=== PATIENT | male | born 1990 | race Caucasian/White ===

== ENCOUNTER 2018-04-13 18:11 | Emergency (ER) | payer OTHER, SELFPAY ==
[2018-04-13 18:35] VITALS: BP 137/77; PULSE 69; RESP 20; TEMP 36.6; O2SAT 99
--- NOTE | 2018-04-13 19:51 | DI.RAD.S_ITS ---
PROCEDURE: XR FINGER LT MIN 2V INDICATIONS: injury TECHNIQUE: AP hand, 2 views of the left second finger(s) acquired. COMPARISON: None. FINDINGS: Bones: No fractures or dislocations. No suspicious bony lesions. Soft tissues: No suspicious soft tissue calcifications. Punctate, less than 1 mm in diameter foreign body density seen noted adjacent to the tip of the left second finger. IMPRESSION: No fracture. No osseous lesion. If there are persistent symptoms or clinical suspicion for pathology, then repeat radiographs or advanced imaging (CT, MRI or bone scan) should be considered for further evaluation. Dictated by: Verna Meraz MD, PhD on 04/13/2018 at 20:42 Approved by: Verna Meraz MD, PhD on 04/13/2018 at 20:43
[2018-04-13] MEDS: TET,DIPH,PERTUSS(ACELL),VAC/PF 0.5 ML SYRINGE IM (21:08)
--- NOTE | 2018-04-13 21:10 | PC.NURSE ---
nail bed is intact, pt states was punctured with wood.
--- NOTE | 2018-04-13 21:23 | ED.UPPEXIN ---
HPI - Extremity Injury (Upper) <JAIRO Gutierrez Last Filed: 04/13/18 23:10> General Chief Complaint: Extremity Injury, Upper Stated Complaint: LEFT HAND INJURY Time Seen by Provider: 04/13/18 21:09 Source: patient Mode of arrival: ambulatory Limitations: no limitations History of Present Illness HPI narrative: This healthy 28-year-old male reached down on to the wood frame of a doorway and pulled a piece of wood under his left pointer finger. He is right-handed. He tried to get it out and it broke off under the nail and now unable to remove. He states that initially, it was quite achy even into his hand but pain is better now. He is able to move the hand normally. He denies any fever or redness. He is not up-to-date on tetanus vaccine. Related Data Allergies Allergy/AdvReac Type Severity Reaction Status Date / Time No Known Drug Allergies Allergy Verified 04/13/18 21:12 Review of Systems <JAIRO Gutierrez Last Filed: 04/13/18 23:10> Review of Systems All systems reviewed & are unremarkable except as noted in HPI and below Exam <JAIRO Gutierrez Last Filed: 04/13/18 23:10> Narrative Exam Narrative: GENERAL APPEARANCE: Patient sitting comfortably, in no distress. LUNGS: Clear to auscultation bilaterally. HEART: Rate and rhythm regular without murmur, normal S1 and S2, no S3 or S4. DERM: L. PF there is a wood fragment lodged under the nail that is approximately 1 cm in length by 2-4 mm wide, this is flush with the nail border MS: Left hand and wrist full a ROM NEUROVASCULAR: Left hand and fingers are warm and pink with brisk cap refill and sensation grossly intact Initial Vital Signs Initial Vital Signs: Vital Signs Temperature 97.8 F 04/13/18 18:35 Pulse Rate 69 04/13/18 18:35 Respiratory Rate 20 04/13/18 18:35 Blood Pressure 137/77 H 04/13/18 18:35 Pulse Oximetry 99 04/13/18 18:35 <Clay Guy DO - Last Filed: 04/14/18 03:07> Initial Vital Signs Initial Vital Signs: Vital Signs Temperature 97.8 F 04/13/18 18:35 Pulse Rate 69 04/13/18 18:35 Respiratory Rate 20 04/13/18 18:35 Blood Pressure 137/77 H 04/13/18 18:35 Pulse Oximetry 99 04/13/18 18:35 Procedures <Roberta Starr PA-C - Last Filed: 04/13/18 23:10> Foreign Body OTHER Site: hand (L PF) Description of foreign body: other (wood) Sedation/Analgesia: other (digital block 4.5cc 2lain lidocaine) Technique: removal with forceps, incision made to facilitate removal and irrigation Confirmed by:: direct visualization Course <Roberta Starr PA-C - Last Filed: 04/13/18 23:10> Additional Information: A digital block was done by palmar approach. The wood was removed in large fragments after partial nail excision, then irrigated with a catheter tip. Appeared to be fully removed. Bulky dressing placed. Orders Ordered: ED Orders 04/13/18 19:51 XR finger LT min 2V Stat Discontinued Medications Diphtheria/Tetanus/Acell Pertussis (Adacel) 0.5 ml IM .ONCE ONE Stop: 04/13/18 21:07 Last Admin: 04/13/18 21:08 Dose: 0.5 ml Ibuprofen (Ibuprofen 800mg Prepack) 1 bottle MISC SEEINSTR ONE Stop: 04/13/18 22:29 Last Admin: 04/13/18 22:35 Dose: 800 mg Vital Signs - 8 hr 04/13/18 21:30 04/13/18 22:25 Temperature 98.0 F 98.0 F Pulse Rate 66 60 Respiratory Rate 16 16 Blood Pressure [Right Arm] 113/75 143/89 H Pulse Oximetry 99 <Clay Guy DO - Last Filed: 04/14/18 03:07> Orders Ordered: ED Orders 04/13/18 19:51 XR finger LT min 2V Stat Discontinued Medications Diphtheria/Tetanus/Acell Pertussis (Adacel) 0.5 ml IM .ONCE ONE Stop: 04/13/18 21:07 Last Admin: 04/13/18 21:08 Dose: 0.5 ml Ibuprofen (Ibuprofen 800mg Prepack) 1 bottle MISC SEEINSTR ONE Stop: 04/13/18 22:29 Last Admin: 04/13/18 22:35 Dose: 800 mg Vital Signs - 8 hr 04/13/18 21:30 04/13/18 22:25 Temperature 98.0 F 98.0 F Pulse Rate 66 60 Respiratory Rate 16 16 Blood Pressure [Right Arm] 113/75 143/89 H Pulse Oximetry 99 MDM - Extremity Injury (Upper) <Roberta Starr PA-C - Last Filed: 04/13/18 23:10> Imaging Data hand: Radiologist's impression: [address] [address] XRay Report Signed Patient: Joe Booth MR#: [id number] : 1990 Acct:[id number] Age/Sex: 28 / M Date of Service: 04/13/18 Loc: ED Accession Number: [id number] Procedure: XR finger LT min 2V Ordering Provider: Roberta Starr P.A-C PROCEDURE: XR FINGER LT MIN 2V INDICATIONS: injury TECHNIQUE: AP hand, 2 views of the left second finger(s) acquired. COMPARISON: None. FINDINGS: Bones: No fractures or dislocations. No suspicious bony lesions. Soft tissues: No suspicious soft tissue calcifications. Punctate, less than 1 mm in diameter foreign body density seen noted adjacent to the tip of the left second finger. IMPRESSION: No fracture. No osseous lesion. If there are persistent symptoms or clinical suspicion for pathology, then repeat radiographs or advanced imaging (CT, MRI or bone scan) should be considered for further evaluation. Dictated by: Verna Meraz MD, PhD on 04/13/2018 at 20:42 Approved by: Verna Meraz MD, PhD on 04/13/2018 at 20:43 Discharge Plan Departure Patient Disposition: Home, Self-Care Clinical Impression: Foreign body finger Discharge Date/Time: 04/13/18 22:41 Interventions: ED Discharge Assessment Last Done: 04/13/18 22:40 Instructions: DI for Removal of Foreign Body From Skin Activity Restrictions/Additional Instructions: I have partially removed your nail today to get the wood fragments out. It appears that we were able to remove all of this, however you can hot soak it a few times to help any remaining tiny specks to come out if any. I suggest taking the ibuprofen we gave you at least tonight and in the morning to help with pain and inflammation. Monitor for signs of infection as we talked about and return if any. Wear a protective dressing when you are working or could bump the finger. The nail will take some time but should grow out provided there is no nail bed damage from the wood fragment. <Clay Guy, DO - Last Filed: 04/14/18 03:07> Cosign ED Attending Teriature Attestation: I was immediately available in the department for consultation. Documentation has been reviewed. I agree with assessment and plan.
--- NOTE | 2018-04-13 21:29 | ED_ITS ---
HPI - Extremity Injury (Upper) <JAIRO Gutierrez Last Filed: 04/13/18 23:10> General Chief Complaint: Extremity Injury, Upper Stated Complaint: LEFT HAND INJURY Time Seen by Provider: 04/13/18 21:09 Source: patient Mode of arrival: ambulatory Limitations: no limitations History of Present Illness HPI narrative: This healthy 28-year-old male reached down on to the wood frame of a doorway and pulled a piece of wood under his left pointer finger. He is right-handed. He tried to get it out and it broke off under the nail and now unable to remove. He states that initially, it was quite achy even into his hand but pain is better now. He is able to move the hand normally. He denies any fever or redness. He is not up-to-date on tetanus vaccine. Related Data Allergies Allergy/AdvReac Type Severity Reaction Status Date / Time No Known Drug Allergies Allergy Verified 04/13/18 21:12 Review of Systems <JAIRO Gutierrez Last Filed: 04/13/18 23:10> Review of Systems All systems reviewed & are unremarkable except as noted in HPI and below Exam <JAIRO Gutierrez Last Filed: 04/13/18 23:10> Narrative Exam Narrative: GENERAL APPEARANCE: Patient sitting comfortably, in no distress. LUNGS: Clear to auscultation bilaterally. HEART: Rate and rhythm regular without murmur, normal S1 and S2, no S3 or S4. DERM: L. PF there is a wood fragment lodged under the nail that is approximately 1 cm in length by 2-4 mm wide, this is flush with the nail border MS: Left hand and wrist full a ROM NEUROVASCULAR: Left hand and fingers are warm and pink with brisk cap refill and sensation grossly intact Initial Vital Signs Initial Vital Signs: Vital Signs Temperature 97.8 F 04/13/18 18:35 Pulse Rate 69 04/13/18 18:35 Respiratory Rate 20 04/13/18 18:35 Blood Pressure 137/77 H 04/13/18 18:35 Pulse Oximetry 99 04/13/18 18:35 <Clay Guy DO - Last Filed: 04/14/18 03:07> Initial Vital Signs Initial Vital Signs: Vital Signs Temperature 97.8 F 04/13/18 18:35 Pulse Rate 69 04/13/18 18:35 Respiratory Rate 20 04/13/18 18:35 Blood Pressure 137/77 H 04/13/18 18:35 Pulse Oximetry 99 04/13/18 18:35 Procedures <Roberta Starr PA-C - Last Filed: 04/13/18 23:10> Foreign Body OTHER Site: hand (L PF) Description of foreign body: other (wood) Sedation/Analgesia: other (digital block 4.5cc 2Technique: removal with forceps , incision made to facilitate removal and irrigation Confirmed by:: direct visualization Course <Roberta Starr PA-C - Last Filed: 04/13/18 23:10> Additional Information: A digital block was done by palmar approach. The wood was removed in large fragments after partial nail excision, then irrigated with a catheter tip. Appeared to be fully removed. Bulky dressing placed. Orders Ordered: ED Orders 04/13/18 19:51 XR finger LT min 2V Stat Discontinued Medications Diphtheria/Tetanus/Acell Pertussis (Adacel) 0.5 ml IM .ONCE ONE Stop: 04/13/18 21:07 Last Admin: 04/13/18 21:08 Dose: 0.5 ml Ibuprofen (Ibuprofen 800mg Prepack) 1 bottle MISC SEEINSTR ONE Stop: 04/13/18 22:29 Last Admin: 04/13/18 22:35 Dose: 800 mg Vital Signs - 8 hr 04/13/18 21:30 04/13/18 22:25 Temperature 98.0 F 98.0 F Pulse Rate 66 60 Respiratory Rate 16 16 Blood Pressure [Right Arm] 113/75 143/89 H Pulse Oximetry 99 <Clay Guy DO - Last Filed: 04/14/18 03:07> Orders Ordered: ED Orders 04/13/18 19:51 XR finger LT min 2V Stat Discontinued Medications Diphtheria/Tetanus/Acell Pertussis (Adacel) 0.5 ml IM .ONCE ONE Stop: 04/13/18 21:07 Last Admin: 04/13/18 21:08 Dose: 0.5 ml Ibuprofen (Ibuprofen 800mg Prepack) 1 bottle MISC SEEINSTR ONE Stop: 04/13/18 22:29 Last Admin: 04/13/18 22:35 Dose: 800 mg Vital Signs - 8 hr 04/13/18 21:30 04/13/18 22:25 Temperature 98.0 F 98.0 F Pulse Rate 66 60 Respiratory Rate 16 16 Blood Pressure [Right Arm] 113/75 143/89 H Pulse Oximetry 99 MDM - Extremity Injury (Upper) <Roberta Starr PA-C - Last Filed: 04/13/18 23:10> Imaging Data hand: Radiologist's impression: [address] [address] XRay Report Signed Patient: Joe Booth MR#: [id number] : 1990 Acct:[id number] Age/Sex: 28 / M Date of Service: 04/13/18 Loc: ED Accession Number: [id number] Procedure: XR finger LT min 2V Ordering Provider: Roberta Starr P.A-C PROCEDURE: XR FINGER LT MIN 2V INDICATIONS: injury TECHNIQUE: AP hand, 2 views of the left second finger(s) acquired. COMPARISON: None. FINDINGS: Bones: No fractures or dislocations. No suspicious bony lesions. Soft tissues: No suspicious soft tissue calcifications. Punctate, less than 1 mm in diameter foreign body density seen noted adjacent to the tip of the left second finger. IMPRESSION: No fracture. No osseous lesion. If there are persistent symptoms or clinical suspicion for pathology, then repeat radiographs or advanced imaging (CT, MRI or bone scan) should be considered for further evaluation. Dictated by: Verna Meraz MD, PhD on 04/13/2018 at 20:42 Approved by: Verna Meraz MD, PhD on 04/13/2018 at 20:43 Discharge Plan Departure Patient Disposition: Home, Self-Care Clinical Impression: Foreign body finger Discharge Date/Time: 04/13/18 22:41 Interventions: ED Discharge Assessment Last Done: 04/13/18 22:40 Instructions: DI for Removal of Foreign Body From Skin Activity Restrictions/Additional Instructions: I have partially removed your nail today to get the wood fragments out. It appears that we were able to remove all of this, however you can hot soak it a few times to help any remaining tiny specks to come out if any. I suggest taking the ibuprofen we gave you at least tonight and in the morning to help with pain and inflammation. Monitor for signs of infection as we talked about and return if any. Wear a protective dressing when you are working or could bump the finger. The nail will take some time but should grow out provided there is no nail bed damage from the wood fragment. <Clay Guy, DO - Last Filed: 04/14/18 03:07> Cosign ED Attending Len Attestation: I was immediately available in the department for consultation. Documentation has been reviewed. I agree with assessment and plan.
[2018-04-13 21:30] VITALS: BP 113/75; PULSE 66; RESP 16; TEMP 36.7
[2018-04-13 22:25] VITALS: BP 143/89; PULSE 60; RESP 16; TEMP 36.7; O2SAT 99
[2018-04-13] MEDS: IBUPROFEN 800MG PREPACK 1 BOTTLE MISC (22:35)
== END 2018-04-13 22:41 | disposition home or self-care (01) ==
PROVIDERS: Emergency Provider Internal Medicine; Family Provider Family Medicine; PCP Family Medicine
DX: S60.453A Superficial foreign body of left middle finger, initial encounter (principal); W45.8XXA Other foreign body or object entering through skin, initial encounter
CPT/HCPCS: 10120; 73140; 90471; 99283; 90715

== ENCOUNTER 2022-04-19 21:03 | Emergency (ER) | payer OTHER, MEDICAID, SELFPAY ==
[2022-04-19 21:20] VITALS: BP 142/78; PULSE 69; RESP 16; TEMP 36.6; O2SAT 97; BMI 27.1
--- NOTE | 2022-04-19 21:24 | ED.SKABFB ---
HPI - Skin/Abscess/Foreign Bdy General Chief complaint: Skin/Abscess/Foreign Body Stated complaint: bug bite on left leg Time Seen by Provider: 04/19/22 21:08 Mode of arrival: Family Vehicle History of Present Illness HPI narrative: 32-year-old male nonsmoker with out significant medical history presents for evaluation of a red painful spot on his left medial thigh that he is concerned might be a bug bite or infection. He 1st noticed it last night and does not remember any specific or memorable event and certainly did not see any insect or bug on him. Furthermore, he denies any injury or other. He denies systemic complaints such as fever or chills nor nausea or vomiting. He states there has been no drainage or red streaks noted. He does have pain with palpation. He is otherwise well and free of complaint Related Data Previous Rx's Medication Instructions Recorded doxycycline hyclate 100 mg tablet 100 mg PO BID #20 tabs 04/19/22 Allergies Allergy/AdvReac Type Severity Reaction Status Date / Time adhesive tape AdvReac Rash Verified 04/19/22 21:24 Review of Systems Review of Systems Narrative: GENERAL: Denies chills, fatigue, malaise, fever, sweats. HEENT: Denies sinus pain, ear pain, sore throat, difficulty swallowing, dizziness. RESPIRATORY: Denies dyspnea, cough, wheezing, hemoptysis, sputum. CARDIOVASCULAR: Denies chest pain, palpitations, orthopnea, edema, GASTROINTESTINAL: Denies nausea, vomiting, abdominal pain, diarrhea, constipation, melena. : Denies dysuria, frequency, incontinence, hematuria, urinary retention. MUSCULOSKELETAL: denies weakness, joint pain, or bony pain SKIN: See HPI NEUROLOGIC: Denies weakness, headache, numbness, change in speech, confusion, seizures, incoordination. PSYCHIATRIC: No concerning psychosocial issues. 12 point review of systems is negative except for those stated above Patient History Medical History Healthy adult male Social History Smoking Status: Never smoker substance use type: marijuana Smoking Status: Never smoker alcohol intake frequency: 0-2 drinks per day Substance Use Type: marijuana Exam Narrative Exam Narrative: GEN: AOx3 and in mild distress EYES: Pupils are equal, round, and reactive to light and accommodation. Extraoccular muscles are intact bilaterally. There is no subconjunctival hemorrhage or exudate. CHEST: Lungs are clear to auscultation bilaterally and free of wheezes, rales, or rhonchi. Heart rate is regular rhythm, there are no murmurs, clicks, rubs, or gallops. There is no chest wall tenderness. ABD: Abdomen is soft and nontender. There is no guarding or rebound. Bowel sounds are normal in all 4 quadrants. There is no mass or organomegaly. EXT: 2 x 2 cm area of erythema and tenderness without fluctuance or induration, relatively well-circumscribed and free of lymphangitis, no obvious foreign body or break in the skin Full painless ROM of all extremities with no loss of sensation or strength. SKIN: Warm, pink, and dry. No erythema or rash Initial Vital Signs Initial Vital Signs: Vital Signs Temperature 98 F 04/19/22 21:20 Pulse Rate 69 04/19/22 21:20 Respiratory Rate 16 04/19/22 21:20 Blood Pressure 142/78 H 04/19/22 21:20 Pulse Oximetry 97 04/19/22 21:20 Oxygen Delivery Method 04/19/22 21:20 Course Orders Ordered: Discontinued Medications Doxycycline Hyclate (Doxycycline Hyclate 100 Mg Tablet) 100 mg PO NOW ONE Stop: 04/19/22 21:38 Last Admin: 04/19/22 21:41 Dose: 100 mg Documented By: EB Vital Signs Vital signs: Vital Signs - 8 hr 04/19/22 21:20 Temperature 98 F Pulse Rate 69 Respiratory Rate 16 Blood Pressure 142/78 H Pulse Oximetry 97 Oxygen Delivery Method Room Air MDM - Skin/Abscess/Foreign Bdy MDM Narrative Medical decision making narrative: Patient is reassuring history and physical without systemic findings. He denies any injury or obvious break in the skin. It is painful, red and warm but without drainage, induration or fluctuance. Infectious etiology certainly most likely given history and physical, clot considered but thought unlikely given superficial nature of findings. Extensive return precautions discussed questions answered to his apparent satisfaction Discharge Plan Departure Patient Disposition: Home Clinical Impression: Cellulitis Qualifiers: Site of cellulitis: extremity Site of cellulitis of extremity: lower extremity Laterality: left Qualified Code(s): L03.116 - Cellulitis of left lower limb Instructions: DI for Cellulitis -- Adult Activity Restrictions/Additional Instructions: *You have been diagnosed with [cellulitis versus possible infected insect bite on left medial thigh.] *What to do: *Please continue to take your regular medications as directed. [ x] New medication prescriptions sent to your pharmacy: [ [facility] in [place]] [ ] New medication written as a paper prescription [ ] No new medications given *Please follow up with your primary care provider in 2-3 days, call for an appointment. Let them know you were seen in the Emergency Department and that we ask that you be seen in follow up. We will electronically transmit a record of today's note if your PCP is in our system *If you do not have a primary care provider please contact the [facility] Resource line at [phone]. They will ask some questions about your medical history and help get you set up with a doctor in the community. *Return to Emergency Department if you should have any new, worsening or concerning symptoms, such as [fever greater than 101 F, shaking chills, worsening pain, persistent vomiting or other bothersome symptoms] Prescriptions: New doxycycline hyclate 100 mg tablet 100 mg PO BID Qty: 20 0RF Referrals: Keri Rivera MD [Primary Care Provider] - Visit Report Forms: Patient Portal/API
[2022-04-19] MEDS: DOXYCYCLINE HYCLATE 100 MG TABLET PO (21:41)
== END 2022-04-19 21:45 | disposition home or self-care (01) ==
PROVIDERS: Emergency Provider Emergency Medicine; PCP Family Medicine
DX: L03.116 Cellulitis of left lower limb (principal)
CPT/HCPCS: 99283

== ENCOUNTER 2022-10-30 07:40 | Emergency (ER) | payer OTHER, MEDICAID, SELFPAY ==
--- NOTE | 2022-10-30 07:44 | ED_ITS ---
HPI - General Adult General Chief complaint: Skin/Abscess/Foreign Body Stated complaint: Lump under buttocks between legs Time Seen by Provider: 10/30/22 07:42 History of Present Illness HPI narrative: 32-year-old male nonsmoker with noncontributory medical history presents with a chief complaint of a painful red lump on his left buttock that has been worsening over the past few days. He denies any systemic complaints such as fever, chills nor nausea or vomiting. He denies chest pain or shortness of breath. He denies abdominal pain, constipation or diarrhea. He states and does not her to have a bowel movement though the pressure from the toilet seat does cause some discomfort. He had been seen and evaluated at the walk-in clinic and it sounds like at the time the redness of but not visible and he was given hydrocortisone foam prescription which he was unable to fill given the cost Related Data Previous Rx's Medication Instructions Recorded doxycycline hyclate 100 mg tablet 100 mg PO BID #20 tabs 04/19/22 hydrocortisone 1 %-pramoxine 1 % 1 applic NV TID-QID PRN rectal 10/29/22 rectal foam (Proctofoam HC) discomfort #10 grams doxycycline hyclate 100 mg tablet 100 mg PO BID #20 tabs 10/30/22 Allergies Allergy/AdvReac Type Severity Reaction Status Date / Time adhesive tape AdvReac Rash Verified 04/19/22 21:24 Review of Systems Review of Systems Narrative: GENERAL: Denies chills, fatigue, malaise, fever, sweats. HEENT: Denies sinus pain, ear pain, sore throat, difficulty swallowing, dizziness. RESPIRATORY: Denies dyspnea, cough, wheezing, hemoptysis, sputum. CARDIOVASCULAR: Denies chest pain, palpitations, orthopnea, edema, GASTROINTESTINAL: Denies nausea, vomiting, abdominal pain, diarrhea, constipation, melena. : Denies dysuria, frequency, incontinence, hematuria, urinary retention. MUSCULOSKELETAL: denies weakness, joint pain, or bony pain SKIN: See HPI NEUROLOGIC: Denies weakness, headache, numbness, change in speech, confusion, seizures, incoordination. PSYCHIATRIC: No concerning psychosocial issues. 12 point review of systems is negative except for those stated above Patient History Medical History Healthy adult male Social History Smoking Status: Never smoker substance use type: marijuana Smoking Status: Never smoker alcohol intake frequency: 0-2 drinks per day Substance Use Type: marijuana Exam Narrative Exam Narrative: GENERAL: [32] year old patient appears stated age. Well-developed patient, in mild distress. HEAD: Atraumatic. Normocephalic. EYES: Pupils equal round and reactive. Extraocular motions intact. No scleral icterus. No injection or drainage. ENT: Nose without bleeding, purulent drainage. Throat without erythema, tonsillar hypertrophy or exudate. Airway patent. NECK: Trachea midline. Non tender CARDIOVASCULAR: Regular rate and rhythm without murmurs, gallops, or rubs. RESPIRATORY: Clear to auscultation. Breath sounds equal bilaterally. No wheezes, rales, or rhonchi. GASTROINTESTINAL: Abdomen soft, non-tender, nondistended. RECTAL: 2 x 3.5 cm area of erythema and tenderness with central induration and no fluctuance on left buttock adjacent to external anal sphincter. No hemorrhoid noted, no bleeding or discharge, no evidence of fissure, no pain or fullness on rectal exam EXTREMITIES: No edema or joint tenderness. BACK: Nontender without deformity or crepitance. No flank tenderness. NEURO: AOx3. SKIN: No rash or erythema of visible areas Initial Vital Signs Initial Vital Signs: Vital Signs Pulse Rate 88 10/30/22 07:51 Respiratory Rate 18 10/30/22 07:51 Blood Pressure 161/94 H 10/30/22 07:51 Pulse Oximetry 96 10/30/22 07:51 Oxygen Delivery Method 10/30/22 07:51 Medical Decision Making [facility] Narrative Medical decision making narrative: [32-year-old male nonsmoker otherwise healthy male presents with a painful lump adjacent to his anus on his left buttock without drainage or pain with bowel movement] Multiple etiologies for patient's symptoms considered including, but not limited to: [Cellulitis, abscess, hemorrhoid, perirectal abscess versus other] Prior Charts reviewed: Including walk-in clinic note from recent visit Labs reviewed and interpreted by myself: None indicated Imaging reviewed: None indicated Exam is reassuring and there is no evidence of perirectal abscess. There is erythema and induration which is suggestive of cellulitis and perhaps very early abscess but there is no indication that incision and drainage would be beneficial at this time. Patient encouraged to take antibiotics as directed, use Epsom salt soaks, and given return precautions Patient's symptoms improved over duration of stay with above-stated therapies. Findings and discharge diagnosis discussed with patient/family followed by verbalization of understanding Return precautions discussed with patient/family whom verbalize understanding of diagnosis and plan Discharge Plan Departure Patient Disposition: Home Clinical Impression: Abscess of skin or subcutaneous tissue Instructions: DI for Skin Abscess Activity Restrictions/Additional Instructions: *You have been diagnosed with [superficial cellulitis with possible mild abscess, as we discussed at this point in time there is no indication that an incision and drainage is indicated or even possible] *What to do: *Please continue to take your regular medications as directed. [x ] New medication prescriptions sent to your pharmacy: [[facility] ] [ ] New medication written as a paper prescription [ ] No new medications given *Please follow up with your primary care provider in 2-3 days, call for an appointment. Let them know you were seen in the Emergency Department and that we ask that you be seen in follow up. We will electronically transmit a record of today's note if your PCP is in our system * also, as we discussed please consider soaks in warm water with Epsom salts *Return to Emergency Department if you should have any new, worsening or concerning symptoms, such as [fever greater than 101 F, shaking chills, worsening pain, persistent vomiting or other bothersome symptoms] Prescriptions: New doxycycline hyclate 100 mg tablet 100 mg PO BID Qty: 20 0RF No Action Proctofoam HC 1-1 % foam 1 applic NV TID-QID PRN (Reason: rectal discomfort) Qty: 10 0RF doxycycline hyclate 100 mg tablet 100 mg PO BID Qty: 20 0RF Referrals: Keri Rivera MD [Primary Care Provider] - Stand Alone Forms: Patient Portal/API
[2022-10-30 07:51] VITALS: BP 161/94; PULSE 88; RESP 18; O2SAT 96; BMI 29.8
[2022-10-30 07:59] VITALS: TEMP 37
== END 2022-10-30 08:27 | disposition home or self-care (01) ==
PROVIDERS: Emergency Provider Emergency Medicine; PCP Family Medicine
DX: L02.31 Cutaneous abscess of buttock (principal)
CPT/HCPCS: 99281

== ENCOUNTER 2022-10-31 11:15 | Emergency (ER) | payer OTHER, MEDICAID, SELFPAY ==
--- NOTE | 2022-10-31 11:19 | ED.GENADULT ---
HPI - General Adult General Stated complaint: something on back leg here T-1/sent by Time Seen by Provider: 10/31/22 11:18 Related Data Previous Rx's Medication Instructions Recorded doxycycline hyclate 100 mg tablet 100 mg PO BID #20 tabs 04/19/22 hydrocortisone 1 %-pramoxine 1 % 1 applic OR TID-QID PRN rectal 10/29/22 rectal foam (Proctofoam HC) discomfort #10 grams doxycycline hyclate 100 mg tablet 100 mg PO BID #20 tabs 10/30/22 Allergies Allergy/AdvReac Type Severity Reaction Status Date / Time adhesive tape AdvReac Rash Verified 04/19/22 21:24 Patient History Medical History Healthy adult male Social History Smoking Status: Never smoker substance use type: marijuana Smoking Status: Never smoker alcohol intake frequency: holidays/special occasions only Substance Use Type: marijuana Course Orders Ordered: ED Orders 10/31/22 11:26 Basic Metabolic Panel Stat Complete Blood Count AUTO DIFF Stat Magnesium Stat Lactated Ringer's (Lactated Ringers) 1,000 mls @ 1,000 mls/hr IV BOLUS ONE Stop: 10/31/22 12:25 Discharge Plan Departure Prescriptions: No Action Proctofoam HC 1-1 % foam 1 applic OR TID-QID PRN (Reason: rectal discomfort) Qty: 10 0RF doxycycline hyclate 100 mg tablet 100 mg PO BID Qty: 20 0RF doxycycline hyclate 100 mg tablet 100 mg PO BID Qty: 20 0RF Referrals: Keri Rivera MD [Primary Care Provider] -
[2022-10-31 11:26] VITALS: BP 143/90; PULSE 86; RESP 18; TEMP 36.7; O2SAT 99
--- NOTE | 2022-10-31 11:28 | ED.GENADULT ---
HPI - General Adult General Chief complaint: Recheck/Abnormal Lab/Rx Stated complaint: something on back leg here T-1/sent by DR Anguiano Seen by Provider: 10/31/22 11:18 History of Present Illness HPI narrative: 32-year-old male nonsmoker with noncontributory medical history presents with a chief complaint of a painful red lump on his left buttock that has been worsening over the past few days. Seen and evaluated by myself yesterday and findings were most consistent with buttock cellulitis and possible early abscess without evidence of the need for incision and drainage, no evidence of perirectal abscess. He was prescribed doxycycline and encouraged to follow up with his doctors. Patient has been taking medications as directed but states that he feels generally fatigued, weak and lightheaded. He states that he is had chronic back pain and as a consequence he generally does not sleep well but due to the pain in his buttock he has been having more trouble sleeping and since taking antibiotics his appetite is decreased. He went to see a animation camera operator for evaluation who agree that that is likely cellulitic and no indication for incision and drainage but due to his development of systemic complaints was encouraged to present to the emergency department for evaluation. He has no fever or chills. He is no chest pain or shortness of breath. He does feel lightheaded and nauseated and generally weak as noted above. He denies any constipation or diarrhea and has no urinary complaints. Related Data Previous Rx's Medication Instructions Recorded hydrocortisone 1 %-pramoxine 1 % 1 applic SD TID-QID PRN rectal 10/29/22 rectal foam (Proctofoam HC) discomfort #10 grams doxycycline hyclate 100 mg tablet 100 mg PO BID #20 tabs 10/30/22 Allergies Allergy/AdvReac Type Severity Reaction Status Date / Time adhesive tape AdvReac Rash Verified 04/19/22 21:24 Review of Systems Review of Systems Narrative: GENERAL: See HPI HEENT: Denies sinus pain, ear pain, sore throat, difficulty swallowing, dizziness. RESPIRATORY: Denies dyspnea, cough, wheezing, hemoptysis, sputum. CARDIOVASCULAR: Denies chest pain, palpitations, orthopnea, edema, GASTROINTESTINAL: See HPI : Denies dysuria, frequency, incontinence, hematuria, urinary retention. MUSCULOSKELETAL: denies weakness, joint pain, or bony pain SKIN: Denies rash, skin lesions, or other NEUROLOGIC: Denies weakness, headache, numbness, change in speech, confusion, seizures, incoordination. PSYCHIATRIC: No concerning psychosocial issues. 12 point review of systems is negative except for those stated above Patient History Medical History Healthy adult male Social History Smoking Status: Never smoker substance use type: marijuana Smoking Status: Never smoker alcohol intake frequency: holidays/special occasions only Substance Use Type: marijuana Exam Narrative Exam Narrative: GENERAL: [32] year old patient appears stated age. Well-developed patient, in mild distress. HEAD: Atraumatic. Normocephalic. EYES: Pupils equal round and reactive. Extraocular motions intact. No scleral icterus. No injection or drainage. ENT: Nose without bleeding, purulent drainage. Throat without erythema, tonsillar hypertrophy or exudate. Airway patent. NECK: Trachea midline. Non tender CARDIOVASCULAR: Regular rate and rhythm without murmurs, gallops, or rubs. RESPIRATORY: Clear to auscultation. Breath sounds equal bilaterally. No wheezes, rales, or rhonchi. GASTROINTESTINAL: Abdomen soft, non-tender, nondistended. EXTREMITIES: No edema or joint tenderness. BACK: Nontender without deformity or crepitance. No flank tenderness. NEURO: AOx3. SKIN: No rash or erythema of visible areas Initial Vital Signs Initial Vital Signs: Vital Signs Temperature 98.1 F 10/31/22 11:26 Pulse Rate 86 10/31/22 11:26 Respiratory Rate 18 10/31/22 11:26 Blood Pressure 143/90 H 10/31/22 11:26 Pulse Oximetry 99 10/31/22 11:26 Oxygen Delivery Method 10/31/22 11:26 Course Orders Ordered: Discontinued Medications Lactated Ringer's (Lactated Ringers) 1,000 mls @ 1,000 mls/hr IV BOLUS ONE Stop: 10/31/22 12:25 Last Infusion: 10/31/22 12:36 Dose: 0 mls/hr Documented By: Admin: 10/31/22 11:43 Dose: 1,000 mls/hr Documented By: ALISSA Medical Decision Making Lab Data Result diagrams: 10/31/22 11:38 10/31/22 11:38 Labs: Lab Results 10/31/22 10/31/22 Range/Units 11:38 11:38 WBC 12.2 H (4.5-11.0) X10^3/uL RBC 5.20 (4.5-5.9) X10^6/uL Hgb 15.0 (13.5-17.5) g/dL Hct 44.0 (41-53) % MCV 84.6 (80-100) fL MCH 28.9 (26-34) PG MCHC 34.1 (30-36) % RDW 12.6 (11.6-14.8) % Plt Count 213 (150-400) X10^3/uL Neut % (Auto) 78.9 H (50-75) % Lymph % (Auto) 10.2 L (25-40) % [place] % (Auto) 10.5 (3-14) % Eos % (Auto) 0.1 L (2-4) % Baso % (Auto) 0.3 (0-2) % Neut # (Auto) 9600 H (8020-3151) /uL Lymph # (Auto) 1300 (4230-1216) /uL [place] # (Auto) 1300 H (0-900) /uL Eos # (Auto) 0 (0-450) /uL Baso # (Auto) 0 (0-100) /uL Sodium 137 (137-145) mmol/L Potassium 3.8 (3.4-5.1) mmol/L Chloride 101 (98-107) mmol/L Carbon Dioxide 25 (22-32) mmol/L BUN 12 (9-20) mg/dL Creatinine 0.90 (0.66-1.25) mg/dL Estimated GFR > 60 (>60) mL/min BUN/Creatinine Ratio 13.3 (6-22) Glucose 109 H (70-100) mg/dL Calcium 9.2 (8.4-10.2) mg/dL Magnesium 2.2 (1.6-2.3) mg/dL [facility] Narrative Medical decision making narrative: 32-year-old male nonsmoker returns for re-evaluation of cellulitis on left buttock, stating that he feels generally unwell, tired and at times nauseated Multiple etiologies for patient's symptoms considered including, but not limited to: [Dehydration, systemic infection, electrolyte abnormality versus other] Prior Charts reviewed: Including recent ED visits Labs reviewed and interpreted by myself: No significant abnormal findings Patient well-appearing, no indication for procedure or incision and drainage noted, likely symptoms from poor sleep which he reports chronically from low back pain and made worse the past few days from this infectious process of his buttock. He has not been sleeping well, has not been eating well and became nauseated after taking antibiotics. Patient's symptoms improved over duration of stay with above-stated therapies. Findings and discharge diagnosis discussed with patient/family followed by verbalization of understanding Return precautions discussed with patient/family whom verbalize understanding of diagnosis and plan Discharge Plan Departure Patient Disposition: Home Clinical Impression: Nausea, Cellulitis of buttock, left Instructions: DI for Nausea -- Adult Activity Restrictions/Additional Instructions: *You have been diagnosed with [cellulitis of left buttock as well as nausea and fatigue. As we discussed your lab work is very reassuring and there is no evidence of electrolyte abnormality, anemia or other significant abnormality that would require specific intervention] *What to do: *Please continue to take your regular medications as directed. [ *Please follow up with your primary care provider in 2-3 days, call for an appointment. Let them know you were seen in the Emergency Department and that we ask that you be seen in follow up. We will electronically transmit a record of today's note if your PCP is in our system *If you do not have a primary care provider please contact the [facility] line at [phone]. They will ask some questions about your medical history and help get you set up with a doctor in the community. *Return to Emergency Department if you should have any new, worsening or concerning symptoms, such as [fever greater than 101 F, shaking chills, worsening pain, persistent vomiting or other bothersome symptoms] Prescriptions: No Action Proctofoam HC 1-1 % foam 1 applic SD TID-QID PRN (Reason: rectal discomfort) Qty: 10 0RF doxycycline hyclate 100 mg tablet 100 mg PO BID Qty: 20 0RF Referrals: Keri Rivera MD [Primary Care Provider] - Stand Alone Forms: Patient Portal/API
[2022-10-31] MEDS: LACTATED RINGERS 1,000 ML 1000 ML IV (11:43)
[2022-10-31 11:47] LABS: Add Manual Diff / Slide Review NO; Basophils Absolute Auto 0 /uL (0-100); Basophils Percent Auto 0.3 % (0-2); Eosinophils Absolute Auto 0 /uL (0-450); Eosinophils Percent Auto 0.1 % (2-4); Lymphocytes Absolute Auto 1300 /uL (1100-4500); Lymphocytes Percent Auto 10.2 % (25-40); Mean Corpuscular HGB Conc 34.1 % (30-36); Mean Corpuscular Hemoglobin 28.9 PG (26-34); Mean Corpuscular Volume 84.6 fL (80-100); Monocytes Absolute Auto 1300 /uL (0-900); Monocytes Percent Auto 10.5 % (3-14); Neutrophils Absolute Auto 9600 /uL (1500-7000); Neutrophils Percent Auto 78.9 % (50-75); Platelet Count 213 X10^3/uL (150-400); Red Cell Distribution Width 12.6 % (11.6-14.8); White Blood Cell Count 12.2 X10^3/uL (4.5-11.0)
[2022-10-31 12:02] LABS: BUN Creatinine Ratio 13.3 (6-22); Blood Urea Nitrogen 12 mg/dL (9-20); Calcium 9.2 mg/dL (8.4-10.2); Carbon Dioxide 25 mmol/L (22-32); Chloride 101 mmol/L (98-107); Estimated Glomerular Filt Rate > 60 mL/min (>60); Glucose 109 mg/dL (70-100); HEMOLYSIS < 15 (0-50); Magnesium 2.2 mg/dL (1.6-2.3); Potassium 3.8 mmol/L (3.4-5.1); Sodium 137 mmol/L (137-145)
[2022-10-31 12:37] VITALS: BP 134/74; PULSE 81; RESP 18; O2SAT 98
== END 2022-10-31 12:41 | disposition home or self-care (01) ==
PROVIDERS: Emergency Provider Emergency Medicine; PCP Family Medicine
DX: L03.317 Cellulitis of buttock (principal); R11.0 Nausea; M54.50 Low back pain, unspecified
CPT/HCPCS: 36415; 80048; 83735; 85025; 96360; 99284

== ENCOUNTER 2022-11-01 11:20 | Observation (INO) | payer OTHER, MEDICAID, SELFPAY ==
[2022-11-01 11:58] VITALS: BP 146/86; PULSE 93; RESP 22; TEMP 36.6; O2SAT 99; BMI 30.9
--- NOTE | 2022-11-01 13:57 | ED.RECABL ---
HPI - Recheck/Abnormal Lab/Rx General Chief Complaint: Recheck/Abnormal Lab/Rx Stated Complaint: cant sit cellulitis is getting worse T-5 Time Seen by Provider: 11/01/22 13:57 Source: patient Mode of arrival: Family Vehicle History of Present Illness HPI narrative: 32-year-old male nonsmoker with noncontributory medical history presents with a chief complaint of a painful red lump on his left buttock that has been worsening over the past few days.? Today he states the pain is worsening and he is unable to sit, it is unclear if it hurts to have a bowel movement but he states he is just increasingly uncomfortable and concerned things are getting worse. He has had no fever or chills but does admit that he feels weak, nauseated, lightheaded and fatigued. He denies any chest pain or shortness of breath. He has been taking medications as directed. Related Data Home Medications Medication Instructions Recorded Confirmed No Known Home Medications 11/02/22 11/02/22 Allergies Allergy/AdvReac Type Severity Reaction Status Date / Time adhesive tape AdvReac Rash Verified 04/19/22 21:24 Review of Systems Review of Systems Narrative: GENERAL: Denies chills, fatigue, malaise, fever, sweats. HEENT: Denies sinus pain, ear pain, sore throat, difficulty swallowing, dizziness. RESPIRATORY: Denies dyspnea, cough, wheezing, hemoptysis, sputum. CARDIOVASCULAR: Denies chest pain, palpitations, orthopnea, edema, GASTROINTESTINAL: Denies nausea, vomiting, abdominal pain, diarrhea, constipation, melena. : Denies dysuria, frequency, incontinence, hematuria, urinary retention. MUSCULOSKELETAL: denies weakness, joint pain, or bony pain SKIN: Denies rash, skin lesions, or other NEUROLOGIC: Denies weakness, headache, numbness, change in speech, confusion, seizures, incoordination. PSYCHIATRIC: No concerning psychosocial issues. 12 point review of systems is negative except for those stated above Patient History Medical History Healthy adult male Social History household members: spouse Smoking Status: Former smoker substance use type: marijuana Smoking Status: Former smoker tobacco type: cigarettes alcohol intake frequency: holidays/special occasions only Substance Use Type: marijuana Exam Narrative Exam Narrative: GENERAL: [32] year old patient appears stated age. Well-developed patient, in obvious distress HEAD: Atraumatic. Normocephalic. EYES: Pupils equal round and reactive. Extraocular motions intact. No scleral icterus. No injection or drainage. ENT: Nose without bleeding, purulent drainage. Throat without erythema, tonsillar hypertrophy or exudate. Airway patent. NECK: Trachea midline. Non tender CARDIOVASCULAR: Regular rate and rhythm without murmurs, gallops, or rubs. RESPIRATORY: Clear to auscultation. Breath sounds equal bilaterally. No wheezes, rales, or rhonchi. GASTROINTESTINAL: Abdomen soft, non-tender, nondistended. RECTAL: Left buttock with erythematous, indurated and extremely tender lump, no fluctuance. No bleeding, drainage or skin breakdown EXTREMITIES: No edema or joint tenderness. BACK: Nontender without deformity or crepitance. No flank tenderness. NEURO: AOx3. SKIN: No rash or erythema of visible areas Initial Vital Signs Initial Vital Signs: Vital Signs Temperature 97.8 F 11/01/22 11:58 Pulse Rate 93 H 11/01/22 11:58 Respiratory Rate 22 11/01/22 11:58 Blood Pressure 146/86 H 11/01/22 11:58 Pulse Oximetry 99 11/01/22 11:58 Oxygen Delivery Method 11/01/22 11:58 Course Orders Ordered: Acetaminophen (Acetaminophen 325 Mg Tablet) 650 mg PO Q6H [facility] Last Admin: 11/02/22 09:27 Dose: 650 mg Documented By: Admin: 11/02/22 06:22 Dose: 650 mg Documented By: Admin: 11/02/22 06:02 Dose: Not Given Documented By: Admin: 11/02/22 01:06 Dose: 650 mg Documented By: Admin: 11/01/22 22:33 Dose: Not Given Documented By: CM Al Hydrox/Mg Hydrox/Simethicone (Mag Hydrox/Alum/Simeth 30 Ml Udc) 30 ml PO Q6HR PRN PRN Reason: Dyspepsia Docusate Sodium (Docusate 100 Mg Capsule) 100 mg PO BID [facility] Hydromorphone HCl (Hydromorphone 0.5 Mg Inj) 0.5 mg IV Q3H PRN PRN Reason: Pain, Moderate (4-6) Last Admin: 11/02/22 09:26 Dose: 0.5 mg Documented By: Admin: 11/02/22 01:03 Dose: 0.5 mg Documented By: CM Ciprofloxacin (Cipro) 400 mg in 200 mls @ 200 mls/hr IV Q12H NARINDER Metronidazole (Flagyl) 500 mg in 100 mls @ 100 mls/hr IV Q6H NARINDER Last Infusion: 11/02/22 07:47 Dose: 0 mls/hr Documented By: Admin: 11/02/22 06:19 Dose: 100 mls/hr Documented By: Infusion: 11/02/22 01:10 Dose: 0 mls/hr Documented By: Admin: 11/02/22 00:01 Dose: 100 mls/hr Documented By: CM Naloxone HCl (Naloxone 0.4 Mg/Ml Vial) 0.2 mg IV Q2MIN PRN PRN Reason: Opiate Reversal Ondansetron HCl (Ondansetron 4 Mg/2 Ml Inj) 4 mg IV Q8HR PRN PRN Reason: Nausea And Vomiting Polyethylene Glycol (Polyethylene Glycol 3350 17 Gm Powd.Pack) 17 gm PO DAILY PRN PRN Reason: constipation Discontinued Medications Hydromorphone HCl (Hydromorphone 0.5 Mg Inj) 0.5 mg IV NOW ONE Stop: 11/01/22 17:47 Last Admin: 11/01/22 18:29 Dose: 0.5 mg Documented By: ОЛЕГ Sodium Chloride (Normal Saline 0.9%) 1,000 mls @ 1,000 mls/hr IV BOLUS ONE Stop: 11/01/22 16:05 Last Infusion: 11/01/22 17:04 Dose: 0 mls/hr Documented By: ОЛЕГ Admin: 11/01/22 15:59 Dose: 1,000 mls/hr Documented By: ОЛЕГ Metronidazole (Flagyl) 500 mg in 100 mls @ 100 mls/hr IV NOW ONE Stop: 11/01/22 18:45 Last Infusion: 11/01/22 19:35 Dose: 0 mls/hr Documented By: Admin: 11/01/22 18:29 Dose: 100 mls/hr Documented By: ОЛЕГ Levofloxacin (Levaquin) 750 mg in 150 mls @ 100 mls/hr IV NOW ONE Stop: 11/01/22 19:15 Last Infusion: 11/01/22 20:06 Dose: 100 mls/hr Documented By: Admin: 11/01/22 18:30 Dose: 100 mls/hr Documented By: ОЛЕГ Sodium Chloride (Normal Saline 0.9%) 1,000 mls @ 125 mls/hr IV CONT NARINDER Last Infusion: 11/02/22 09:16 Dose: 0 mls/hr Documented By: Admin: 11/02/22 06:22 Dose: 125 mls/hr Documented By: Infusion: 11/02/22 06:22 Dose: 125 mls/hr Documented By: Admin: 11/01/22 22:33 Dose: 125 mls/hr Documented By: CM Ketorolac Tromethamine (Ketorolac 30 Mg/Ml Vial) 15 mg IV NOW ONE Stop: 11/01/22 15:15 Last Admin: 11/01/22 15:58 Dose: 15 mg Documented By: ОЛЕГ Ondansetron HCl (Ondansetron 4 Mg/2 Ml Inj) 4 mg IV NOW ONE Stop: 11/01/22 17:47 Last Admin: 11/01/22 18:29 Dose: 4 mg Documented By: ОЛЕГ Zolpidem Tartrate (Zolpidem 5 Mg Tablet) 5 mg PO BEDTIME PRN PRN Reason: Sleep Last Admin: 11/01/22 21:23 Dose: 5 mg Documented By: CM Consultations Consultation #1: discussed with medical operations supervisor surgery (Terrence) after review of patient's history and physical exam, labs and imaging she does sure the opinion that there is not likely a large enough abscess to pursue drainage of but does recommend switching antibiotics Consultation #2: Call to Dr. العراقي (on-call for Dr. Rivera) will see patient at bedside and admit this evening Vital Signs Vital signs: Vital Signs - 8 hr 11/01/22 11:58 11/01/22 15:40 Temperature 97.8 F Pulse Rate 93 H 96 H Respiratory Rate 22 18 Blood Pressure 146/86 H 151/85 H Pulse Oximetry 99 99 Oxygen Delivery Method Room Air Room Air MDM - Recheck/Abnormal Lab/Rx Lab Data Result diagrams: 11/02/22 05:46 11/01/22 15:53 Labs: Lab Results 11/01/22 11/01/22 11/01/22 Range/Units 15:53 15:53 17:55 WBC 11.7 H (4.5-11.0) X10^3/uL RBC 5.13 (4.5-5.9) X10^6/uL Hgb 14.6 (13.5-17.5) g/dL Hct 42.9 (41-53) % MCV 83.6 (80-100) fL MCH 28.5 (26-34) PG MCHC 34.1 (30-36) % RDW 12.2 (11.6-14.8) % Plt Count 241 (150-400) X10^3/uL Neut % (Auto) 78.6 H (50-75) % Lymph % (Auto) 10.1 L (25-40) % [place] % (Auto) 11.0 (3-14) % Eos % (Auto) 0.1 L (2-4) % Baso % (Auto) 0.2 (0-2) % Neut # (Auto) 9200 H (9733-1156) /uL Lymph # (Auto) 1200 (7137-2138) /uL [place] # (Auto) 1300 H (0-900) /uL Eos # (Auto) 0 (0-450) /uL Baso # (Auto) 0 (0-100) /uL Sodium 136 L (137-145) mmol/L Potassium 3.6 (3.4-5.1) mmol/L Chloride 97 L (98-107) mmol/L Carbon Dioxide 25 (22-32) mmol/L BUN 11 (9-20) mg/dL Creatinine 0.73 (0.66-1.25) mg/dL Estimated GFR > 60 (>60) mL/min BUN/Creatinine Ratio 15.1 (6-22) Glucose 100 (70-100) mg/dL Calcium 9.5 (8.4-10.2) mg/dL SARS-CoV-2 (PCR) Negative (Negative) Urine Dip Bedside Urine Glucose Negative Bedside Urine Bilirubin - Negative Bedside Urine Ketone + 15 Urine Specific [place] 1.025 Bedside Urine Occult Blood - Negative Bedside Urine pH 6.0 Bedside Urine Protein +/- 15 Bedside Urine Urobilinogen - Negative Bedside Urine Nitrite - Negative Bedside Urine Leukocytes - Negative Esterase MDM Narrative Medical decision making narrative: CC: 32-year-old male returns for the 3rd time with complaint of worsening rectal and buttock pain, now feeling unwell overall Complicating co-morbidities: None known Data collected from: Patient Medical records reviewed: Multiple prior ED visits Differential considered, but not limited to: Development of perirectal abscess, failing outpatient versus other Exam documented above, pertinent findings include: Erythematous tender indurated ?lump? adjacent to external anal sphincter, abdomen soft and nontender, no obvious drainage or bleeding Lab Test results independently reviewed as above. Pertinent findings: No significant lab abnormalities Imaging studies independently reviewed: CT of abdomen and pelvis notes both left and right-sided perirectal abscess Consultations: General surgery and admitting physician Treatments: Antibiotics, pain control fluids Re-evaluations: Minimal improvement Discussion: 32-year-old male presents for 3rd time with worsening rectal pain. He has been taking antibiotics as prescribed and symptoms continue to worsen, there is evidence of failed outpatient therapy and imaging demonstrates perirectal abscess, though not large enough for obvious incision and drainage. Patient requires hospitalization for IV antibiotics and stabilization of his condition Discharge Plan Departure Patient Disposition: Admitted As Inpatient Clinical Impression: Abscess, perirectal Admit Date/Time: 11/01/22 18:15 Admit Provider: Lenka Segnudo
[2022-11-01 15:40] VITALS: BP 151/85; PULSE 96; RESP 18; O2SAT 99
[2022-11-01] MEDS: KETOROLAC 30 MG/ML VIAL 15 MG IV (15:58)
[2022-11-01] MEDS: SODIUM CHLORIDE 0.9% 1,000 ML 1000 ML IV (15:59)
[2022-11-01 16:15] LABS: Add Manual Diff / Slide Review NO; Basophils Absolute Auto 0 /uL (0-100); Basophils Percent Auto 0.2 % (0-2); Eosinophils Absolute Auto 0 /uL (0-450); Eosinophils Percent Auto 0.1 % (2-4); Hematocrit 42.9 % (41-53); Hemoglobin 14.6 g/dL (13.5-17.5); Lymphocytes Absolute Auto 1200 /uL (1100-4500); Lymphocytes Percent Auto 10.1 % (25-40); Mean Corpuscular HGB Conc 34.1 % (30-36); Mean Corpuscular Hemoglobin 28.5 PG (26-34); Mean Corpuscular Volume 83.6 fL (80-100); Monocytes Absolute Auto 1300 /uL (0-900); Neutrophils Absolute Auto 9200 /uL (1500-7000); Neutrophils Percent Auto 78.6 % (50-75); Platelet Count 241 X10^3/uL (150-400); Red Blood Cell Count 5.13 X10^6/uL (4.5-5.9); Red Cell Distribution Width 12.2 % (11.6-14.8); White Blood Cell Count 11.7 X10^3/uL (4.5-11.0)
--- NOTE | 2022-11-01 16:42 | DI.CT.S_ITS ---
PROCEDURE: CT ABDOMEN PELVIS W CON INDICATIONS: arturo-rectal abscess? TECHNIQUE: After the administration of oral and IV contrast, axial sections were acquired from the lung bases to the pubic symphysis. Coronal and sagittal reformats were performed. For radiation dose reduction, the following was used: automated exposure control, adjustment of mA and/or kV according to patient size. COMPARISON: None. FINDINGS: Image quality: Excellent. Lung bases: Unremarkable. Heart: No significant findings. ABDOMEN: Liver: Liver is mildly enlarged with steatosis. Gallbladder: Unremarkable. Biliary ducts: Unremarkable. Pancreas: Unremarkable. Spleen: Unremarkable. Adrenal Glands: Unremarkable. Kidneys and Ureters: Unremarkable. Stomach and Bowel: Stomach, small bowel loops, and colon are unremarkable. Appendix is normal. Peritoneum: No abnormal intraperitoneal fluid. No free air. Ventral Wall: No hernia. Abdominal Nodes: No retroperitoneal or mesenteric adenopathy by size criteria. Vessels: Aorta and inferior vena cava are normal in size. PELVIS: Pelvic Organs: There is appearance of inflammatory change within the medial aspect of the gluteal musculature bilaterally. Focus of low attenuation is noted immediately inferior to the rectum measuring approximately 2.1 cm in the left perirectal region and a similar although slightly more diffuse focus measuring approximately 1.4 cm in the right inferior perirectal region. Bladder: Unremarkable. Pelvic Nodes: No enlarged lymph nodes. Miscellaneous: No inguinal hernias are seen. Bones: Unremarkable. IMPRESSION: Inflammatory change in the perirectal region with small areas of fluid most suggestive of perirectal abscess. Dictated by: Barbara Hurtado M.D. on 11/01/2022 at 17:13 Approved by: Barbara Hurtado M.D. on 11/01/2022 at 17:15
[2022-11-01 16:54] LABS: BUN Creatinine Ratio 15.1 (6-22); Blood Urea Nitrogen 11 mg/dL (9-20); Calcium 9.5 mg/dL (8.4-10.2); Carbon Dioxide 25 mmol/L (22-32); Chloride 97 mmol/L (98-107); Estimated Glomerular Filt Rate > 60 mL/min (>60); Glucose 100 mg/dL (70-100); HEMOLYSIS < 15 (0-50); Potassium 3.6 mmol/L (3.4-5.1); Sodium 136 mmol/L (137-145)
[2022-11-01] MEDS: metroNIDAZOLE 500 MG/100 ML PIGGYBACK 100 MG IV (18:29)
[2022-11-01] MEDS: ONDANSETRON 4 MG/2 ML INJ IV (18:29)
[2022-11-01] MEDS: HYDROMORPHONE 0.5 MG INJ IV (18:29)
[2022-11-01] MEDS: levoFLOXacin 750 MG/150 ML PIGGYBACK 100 MG IV (18:30)
[2022-11-01 18:44] LABS: COVID19 -Nasal RAPID Negative (Negative)
--- NOTE | 2022-11-01 19:24 | P.HP_ITS ---
History of Present Illness History of Present Illness Date Patient Seen: 11/01/22 Time Patient Seen: 19:25 Date of Onset of Symptoms: 10/27/22 Chief complaint: cant sit cellulitis is getting worse T-5 Narrative: Patient is a 29 year old maleWho is otherwise in good health with no major issues who started having issues with discomfort in his right buttock on . Kind of an itch. Seem to maybe get a little worse. 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 Thought it was just bruised. Monday morning woke up with much more pain. And had no other significant changes. No fevers no chills no drainage. Was seen in the urgent care and placed on doxycycline. Apparently did not feel like things were getting much better. Increasing swelling increasing pain. With no other significant change. No drainage. Difficulty having bowel movements. Was seen in the emergency room 3 different times and today was not getting better. Seem to have worsening symptoms and was having inability to control pain. Patient with no other significant new changes or complaints. Review of systems otherwise negative. Patient History Medical History Healthy adult male Family & Social History Safety & Behavioral: Feels Safe in Current Yes Environment Been Physically Hurt or No Threatened By a Person Tobacco & Substance use: Smoking Status Former smoker alcohol intake frequency holiday/special occasion Substance Use Type marijuana Meds Home Medications and Allergies Home Medications Medication Instructions Recorded Confirmed Type hydrocortisone 1 %-pramoxine 1 % 1 applic HI TID-QID PRN rectal 10/29/22 10/31/22 Rx rectal foam (Proctofoam HC) discomfort #10 grams doxycycline hyclate 100 mg tablet 100 mg PO BID #20 tabs 10/30/22 10/31/22 Rx Allergies Allergy/AdvReac Type Severity Reaction Status Date / Time adhesive tape AdvReac Rash Verified 04/19/22 21:24 Review of Systems Review of Systems Narrative: Negative except above Exam Vital Signs (past 8 hours): - 11/01/22 11:58 11/01/22 15:40 Temperature 97.8 F Pulse Rate 93 H 96 H Respiratory Rate 22 18 Blood Pressure 146/86 H 151/85 H Pulse Oximetry 99 99 Oxygen Delivery Method Room Air Room Air Oxygen Delivery Method Room Air Narrative Exam Narrative: alert male very much uncomfortable sitting in chair on his left side. No other changes. Mucous membranes mildly dry neck supple without adenopathy lungs are clear heart regular rate and rhythm abdomen is benign buttock right-sided by the anus with a what appears to be about 4 cm erythematous mass quite tender to palpation. Did not aggressively push. Extremities unremarkable skin otherwise without rash Objective Labs Result Diagrams: 11/01/22 15:53 11/01/22 15:53 Labs: Laboratory Results - last 24 hr 11/01/22 11/01/22 11/01/22 15:53 15:53 17:55 WBC 11.7 H RBC 5.13 Hgb 14.6 Hct 42.9 MCV 83.6 MCH 28.5 MCHC 34.1 RDW 12.2 Plt Count 241 Neut % (Auto) 78.6 H Lymph % (Auto) 10.1 L [place] % (Auto) 11.0 Eos % (Auto) 0.1 L Baso % (Auto) 0.2 Neut # (Auto) 9200 H Lymph # (Auto) 1200 [place] # (Auto) 1300 H Eos # (Auto) 0 Baso # (Auto) 0 Sodium 136 L Potassium 3.6 Chloride 97 L Carbon Dioxide 25 BUN 11 Creatinine 0.73 Estimated GFR > 60 BUN/Creatinine Ratio 15.1 Glucose 100 Calcium 9.5 SARS-CoV-2 (PCR) Negative Assessment & Plan Assessment & Plan narrative: perirectal abscess. Failing outpatient therapy. Patient clearly not doing well. CT scan shows not definitively drainable but certainly appears as if it will need to be drained. Once it clarifies itself. In the meantime IV antibiotics. IV pain medicines. And push fluids. No other changes. I think surgical consult should be undertaken tomorrow and will see what evaluation shows and his normal Dr. decide tomorrow. Dehydration. [id number]. IV hydration over the next 24 hours. full liquid diet but patient really not that hungry and will follow. GI prophylaxis none should be needed. DVT prophylaxis. Should be low risk. Ambulatory will use mechanical. Disposition. Would not be surprised if he needs 48 hours of IV antibiotics and pain control and eventually drainage but will see how the next 24 hours goes. Time Spent With Patient Critical Care time: I spent a total of [] minutes of critical care time on this patient's care today; this time is exclusive of procedural time.
[2022-11-01] MEDS: ZOLPIDEM 5 MG TABLET PO (21:23)
[2022-11-01 21:24] VITALS: BP 144/74; PULSE 91; RESP 17; O2SAT 98
[2022-11-01] MEDS: SODIUM CHLORIDE 0.9% 1,000 ML 125 ML IV (22:33)
[2022-11-02] VITALS (16 sets, daily range): BP systolic 120–136; BP diastolic 63–79; PULSE 62–82; RESP 11–23; TEMP 36.7–37.1; O2SAT 95–99; BMI 30.2
[2022-11-02] MEDS: metroNIDAZOLE 500 MG/100 ML PIGGYBACK 100 MG IV ×4 (00:01→17:58)
[2022-11-02] MEDS: HYDROMORPHONE 0.5 MG INJ IV ×4 (01:03→19:46)
[2022-11-02] MEDS: ACETAMINOPHEN 325 MG TABLET 650 MG PO ×5 (01:06→21:18)
[2022-11-02] MEDS: SODIUM CHLORIDE 0.9% 1,000 ML 125 ML IV (06:22)
[2022-11-02 06:30] LABS: Add Manual Diff / Slide Review NO; Basophils Absolute Auto 0 /uL (0-100); Basophils Percent Auto 0.1 % (0-2); Eosinophils Absolute Auto 0 /uL (0-450); Eosinophils Percent Auto 0.2 % (2-4); Hematocrit 38.9 % (41-53); Hemoglobin 13.5 g/dL (13.5-17.5); Lymphocytes Absolute Auto 1200 /uL (1100-4500); Lymphocytes Percent Auto 11.8 % (25-40); Mean Corpuscular HGB Conc 34.8 % (30-36); Mean Corpuscular Volume 83.5 fL (80-100); Monocytes Absolute Auto 1200 /uL (0-900); Monocytes Percent Auto 12.3 % (3-14); Neutrophils Absolute Auto 7400 /uL (1500-7000); Neutrophils Percent Auto 75.6 % (50-75); Platelet Count 204 X10^3/uL (150-400); Red Blood Cell Count 4.66 X10^6/uL (4.5-5.9); Red Cell Distribution Width 12.4 % (11.6-14.8); White Blood Cell Count 9.8 X10^3/uL (4.5-11.0)
--- NOTE | 2022-11-02 10:29 | PM.CN ---
History of Present Illness Consult details Date Patient Seen: 11/02/22 Time Patient Seen: 10:29 Chief complaint: cant sit cellulitis is getting worse T-5 Reason for consult: perirectal abscess Requesting provider: Clay Guy Narrative: perirectal pain cellulitis treated on 2 different po antibiotics since Monday, currently taking Clindamycin. Pain is worsening. Sharp perirectal pain no drainage, no previous episodes. CT scan reviewed and there is superficial bilateral fluid collections at the 3 and 6 o'clock positions, largest 2.1 cm. Meds Home Medications and Allergies Home Medications Medication Instructions Recorded Confirmed Type No Known Home Medications 11/02/22 11/02/22 History Allergies Allergy/AdvReac Type Severity Reaction Status Date / Time adhesive tape AdvReac Rash Verified 04/19/22 21:24 Review of Systems Review of Systems ROS: Yes All systems reviewed with the patient and are negative except as otherwise documented Exam Vital Signs (past 8 hours): - 11/02/22 02:59 11/02/22 03:00 11/02/22 03:30 Temperature Pulse Rate 75 77 74 Respiratory Rate 19 18 17 Blood Pressure Pulse Oximetry 96 96 96 Oxygen Flow Rate 11/02/22 04:09 11/02/22 04:30 11/02/22 05:00 Temperature Pulse Rate 73 71 67 Respiratory Rate 18 12 Blood Pressure Pulse Oximetry 98 97 98 Oxygen Flow Rate 11/02/22 05:30 11/02/22 06:00 11/02/22 06:30 Temperature Pulse Rate 62 69 75 Respiratory Rate 20 15 13 Blood Pressure Pulse Oximetry 96 95 97 Oxygen Flow Rate 11/02/22 07:00 11/02/22 07:30 11/02/22 07:54 Temperature Pulse Rate 77 77 Respiratory Rate 11 L 17 Blood Pressure 121/79 Pulse Oximetry 97 97 Oxygen Flow Rate 11/02/22 07:54 11/02/22 08:00 11/02/22 09:58 Temperature 98.3 F Pulse Rate 72 82 71 Respiratory Rate 23 20 22 Blood Pressure 136/79 Pulse Oximetry 99 97 Oxygen Flow Rate 0 Oxygen Delivery Method Room Air Oxygen Flow Rate 0 Const General: cooperative, healthy appearing and comfortable Nutritional Appearance: overweight Orientation: alert, awake and oriented x3 HENMT Head: normal to inspection, normocephalic and atraumatic Ears: hearing grossly normal bilaterally Eyes Sclera: sclerae normal Neck Neck: trachea midline Chest Chest: normal inspection of the chest Resp Effort & Inspection: normal respiratory effort and able to speak in complete sentences Cardio Rate: regular rate Rhythm: regular rhythm GI Inspection: normal to inspection Palpation: soft Neuro General: patient alert, patient awake and patient oriented x3 Extrem General: full ROM Psych Appearance: grossly normal Attitude: cooperative Judgment: judgment good Objective Labs Result Diagrams: 11/02/22 05:46 11/01/22 15:53 Labs: Laboratory Results - last 24 hr 11/01/22 11/01/22 11/01/22 15:53 15:53 17:55 WBC 11.7 H RBC 5.13 Hgb 14.6 Hct 42.9 MCV 83.6 MCH 28.5 MCHC 34.1 RDW 12.2 Plt Count 241 Neut % (Auto) 78.6 H Lymph % (Auto) 10.1 L [place] % (Auto) 11.0 Eos % (Auto) 0.1 L Baso % (Auto) 0.2 Neut # (Auto) 9200 H Lymph # (Auto) 1200 [place] # (Auto) 1300 H Eos # (Auto) 0 Baso # (Auto) 0 Sodium 136 L Potassium 3.6 Chloride 97 L Carbon Dioxide 25 BUN 11 Creatinine 0.73 Estimated GFR > 60 BUN/Creatinine Ratio 15.1 Glucose 100 Calcium 9.5 SARS-CoV-2 (PCR) Negative 11/02/22 05:46 WBC 9.8 RBC 4.66 Hgb 13.5 Hct 38.9 L MCV 83.5 MCH 29.0 MCHC 34.8 RDW 12.4 Plt Count 204 Neut % (Auto) 75.6 H Lymph % (Auto) 11.8 L [place] % (Auto) 12.3 Eos % (Auto) 0.2 L Baso % (Auto) 0.1 Neut # (Auto) 7400 H Lymph # (Auto) 1200 [place] # (Auto) 1200 H Eos # (Auto) 0 Baso # (Auto) 0 Sodium Potassium Chloride Carbon Dioxide BUN Creatinine Estimated GFR BUN/Creatinine Ratio Glucose Calcium SARS-CoV-2 (PCR) [facility] Medical History Healthy adult male Tobacco & Substance Use Smoking Status: Former smoker substance use type: marijuana Assessment & Plan Assessment & Plan narrative: Perirectal abscess, not responding to oral antibiotics likely due to switch in antibiotics, and lack of enough time. CTscan shows abscess is small and should respond to antibiotics. Admitted for IV antibiotics and pain control. Re evaluate in am for response with hopeful discharge home on cipro/flagyl combo. COVID-19 COVID-19 status: Negative Time Spent With Patient Time with patient: 30 to 49 minutes with 50% spent counseling/coordinating care Critical Care time: I spent a total of [] minutes of critical care time on this patient's care today; this time is exclusive of procedural time.
--- NOTE | 2022-11-02 11:11 | PM.PN.1 ---
Subjective Subjective Date Patient Seen: 11/02/22 Time Patient Seen: 09:00 Interval history: Today he feels his pain is well controlled with the pain medications. No fevers. He does have pain with passing bowel movement. Exam Vital Signs (past 8 hours): - 11/02/22 03:30 11/02/22 04:09 11/02/22 04:30 Temperature Pulse Rate 74 73 71 Respiratory Rate 17 18 Blood Pressure Pulse Oximetry 96 98 97 Oxygen Flow Rate 11/02/22 05:00 11/02/22 05:30 11/02/22 06:00 Temperature Pulse Rate 67 62 69 Respiratory Rate 12 20 15 Blood Pressure Pulse Oximetry 98 96 95 Oxygen Flow Rate 11/02/22 06:30 11/02/22 07:00 11/02/22 07:30 Temperature Pulse Rate 75 77 77 Respiratory Rate 13 11 L 17 Blood Pressure Pulse Oximetry 97 97 97 Oxygen Flow Rate 11/02/22 07:54 11/02/22 07:54 11/02/22 08:00 Temperature Pulse Rate 72 82 Respiratory Rate 23 20 Blood Pressure 121/79 Pulse Oximetry 99 Oxygen Flow Rate 11/02/22 09:58 Temperature 98.3 F Pulse Rate 71 Respiratory Rate 22 Blood Pressure 136/79 Pulse Oximetry 97 Oxygen Flow Rate 0 Oxygen Delivery Method Room Air Oxygen Flow Rate 0 Narrative Exam Narrative: GEN: no acute distress CV: regular rate and rhythm PULM: clear bilaterally ABD: soft, nontender, nondistended, no organomegaly EXT: warm and well perfused with no edema Objective Labs Result Diagrams: 11/02/22 05:46 11/01/22 15:53 Labs: Laboratory Results - last 24 hr 11/01/22 11/01/22 11/01/22 15:53 15:53 17:55 WBC 11.7 H RBC 5.13 Hgb 14.6 Hct 42.9 MCV 83.6 MCH 28.5 MCHC 34.1 RDW 12.2 Plt Count 241 Neut % (Auto) 78.6 H Lymph % (Auto) 10.1 L [place] % (Auto) 11.0 Eos % (Auto) 0.1 L Baso % (Auto) 0.2 Neut # (Auto) 9200 H Lymph # (Auto) 1200 [place] # (Auto) 1300 H Eos # (Auto) 0 Baso # (Auto) 0 Sodium 136 L Potassium 3.6 Chloride 97 L Carbon Dioxide 25 BUN 11 Creatinine 0.73 Estimated GFR > 60 BUN/Creatinine Ratio 15.1 Glucose 100 Calcium 9.5 Nasal Screen MRSA (PCR) SARS-CoV-2 (PCR) Negative 11/02/22 11/02/22 05:46 09:31 WBC 9.8 RBC 4.66 Hgb 13.5 Hct 38.9 L MCV 83.5 MCH 29.0 MCHC 34.8 RDW 12.4 Plt Count 204 Neut % (Auto) 75.6 H Lymph % (Auto) 11.8 L [place] % (Auto) 12.3 Eos % (Auto) 0.2 L Baso % (Auto) 0.1 Neut # (Auto) 7400 H Lymph # (Auto) 1200 [place] # (Auto) 1200 H Eos # (Auto) 0 Baso # (Auto) 0 Sodium Potassium Chloride Carbon Dioxide BUN Creatinine Estimated GFR BUN/Creatinine Ratio Glucose Calcium Nasal Screen MRSA (PCR) Negative for mrsa SARS-CoV-2 (PCR) [facility] Medical History Healthy adult male Social History Smoking Status: Former smoker substance use type: marijuana Assessment & Plan Assessment & Plan narrative: 1. Perirectal abscess -continue treatment with IV ciprofloxacin and IV flagyl -CT noted to have abscess -surgery consulted, appreciate recs, no indication for surgery currently, will continue to monitor for improvement -continue oral and IV pain medications -order bowel regimen with miralax and docusate CODE: Manager Of Care Spent With Patient Critical Care time: I spent a total of [] minutes of critical care time on this patient's care today; this time is exclusive of procedural time.
[2022-11-02] MEDS: polyethylene glycoL 3350 17 GM POWD.PACK PO (12:19)
[2022-11-02] MEDS: DOCUSATE 100 MG CAPSULE PO ×2 (12:19→21:18)
--- NOTE | 2022-11-02 15:14 | PC.NURSE ---
Admit Note Patient arrived to 229 at 0900, ambulated to room from ER. Tylenol and Dilaudid given for pain 5-6/10 to buttocks. Erythemic and swollen area to the upper right of rectum, draining yellow/white fluid, pt reports pain relief with drainage. Gauze placed by drainage site to absorb and for comfort. Pt independent in room. Oriented to room and to call light/bed/tv controls.
[2022-11-02] MEDS: CIPROFLOXACIN 400 MG/200 ML PIGGYBACK 200 MG IV (16:53)
[2022-11-02] MEDS: ONDANSETRON 4 MG/2 ML INJ IV (17:58)
[2022-11-02] MEDS: SODIUM CHLORIDE 0.9% FLUSH 10 ML IV (19:47)
[2022-11-03] MEDS: metroNIDAZOLE 500 MG/100 ML PIGGYBACK 100 MG IV ×3 (00:07→12:19)
[2022-11-03] MEDS: HYDROMORPHONE 0.5 MG INJ IV ×2 (02:59→09:51)
[2022-11-03 04:00] VITALS: BP 128/72; PULSE 73; RESP 20; TEMP 36.2; O2SAT 100
[2022-11-03 04:30] LABS: Hematocrit 39.9 % (41-53); Hemoglobin 14.1 g/dL (13.5-17.5); Mean Corpuscular HGB Conc 35.3 % (30-36); Mean Corpuscular Hemoglobin 29.2 PG (26-34); Mean Corpuscular Volume 82.9 fL (80-100); Platelet Count 195 X10^3/uL (150-400); Red Blood Cell Count 4.81 X10^6/uL (4.5-5.9); Red Cell Distribution Width 12.3 % (11.6-14.8); White Blood Cell Count 8.1 X10^3/uL (4.5-11.0)
[2022-11-03 04:40] LABS: BUN Creatinine Ratio 11.6 (6-22); Blood Urea Nitrogen 8 mg/dL (9-20); Calcium 8.8 mg/dL (8.4-10.2); Carbon Dioxide 27 mmol/L (22-32); Chloride 101 mmol/L (98-107); Estimated Glomerular Filt Rate > 60 mL/min (>60); Glucose 90 mg/dL (70-100); HEMOLYSIS < 15 (0-50); Potassium 3.7 mmol/L (3.4-5.1); Sodium 138 mmol/L (137-145)
[2022-11-03] MEDS: ACETAMINOPHEN 325 MG TABLET 650 MG PO (04:47)
[2022-11-03] MEDS: CIPROFLOXACIN 400 MG/200 ML PIGGYBACK 200 MG IV (04:48)
--- NOTE | 2022-11-03 07:41 | P.PN_ITS ---
Subjective Subjective Date Patient Seen: 11/03/22 Interval history: 32 yo male admitted with arturo-rectal abscess. Pt reports some improvement in pain though requiring dilaudid every 3-4 hours. Hurts to sit or turn in bed. Did notice a little drainage. Last BM 5 days ago. Exam Vital Signs (past 8 hours): - 11/03/22 04:00 Temperature 97.1 F L Pulse Rate 73 Respiratory Rate 20 Blood Pressure 128/72 Pulse Oximetry 100 Oxygen Delivery Method Room Air Oxygen Flow Rate 0 Narrative Exam Narrative: General: alert, cooperative, appears slightly uncomfortable Breathing non-labored Abdomen: soft, nt, no inguinal LNs Rectal: erythematous fluctuant rt buttock arturo-anal mass Neuro: affect diminished Objective Labs Result Diagrams: 11/03/22 04:02 11/03/22 04:02 Labs: Laboratory Results - last 24 hr 11/02/22 11/03/22 11/03/22 09:31 04:02 04:02 WBC 8.1 RBC 4.81 Hgb 14.1 Hct 39.9 L MCV 82.9 MCH 29.2 MCHC 35.3 RDW 12.3 Plt Count 195 Sodium 138 Potassium 3.7 Chloride 101 Carbon Dioxide 27 BUN 8 L Creatinine 0.69 Estimated GFR > 60 BUN/Creatinine Ratio 11.6 Glucose 90 Calcium 8.8 Nasal Screen MRSA (PCR) Negative for mrsa [facility] Medical History Healthy adult male Social History household members: spouse Smoking Status: Former smoker substance use type: marijuana Assessment & Plan Assessment & Plan narrative: 1. Perirectal abscess -WBC decreasing, still with sig pain and swelling -continue treatment with IV ciprofloxacin and IV flagyl -CT noted to have abscess -surgery consulted, appreciate recs, no indication for surgery currently, will continue to monitor for improvement -continue oral and IV pain medications -cont bowel regimen with miralax and docusate Time Spent With Patient Critical Care time: I spent a total of [] minutes of critical care time on this patient's care today; this time is exclusive of procedural time. Quality VTE Deep Vein Thrombosis/Pulmonary Embolism Present on Admission: No
[2022-11-03 08:15] VITALS: BP 143/75; PULSE 65; RESP 16; TEMP 36.7; O2SAT 100
[2022-11-03] MEDS: SODIUM CHLORIDE 0.9% FLUSH 10 ML IV (08:47)
--- NOTE | 2022-11-03 14:42 | PM.DS.1 ---
History of Present Illness History of Present Illness Date Patient Seen: 11/03/22 Time Patient Seen: 14:42 Chief complaint: cant sit cellulitis is getting worse T-5 Narrative: Patient is a 29 year old maleWho is otherwise in good health with no major issues who started having issues with discomfort in his right buttock on .? Kind of an itch.? Seem to maybe get a little worse.? sits a lot on his buttock because he plays the drums.? Thought it was just bruised.? Monday morning woke up with much more pain.? And had no other significant changes.? No fevers no chills no drainage.? Was seen in the urgent care and placed on doxycycline.? Apparently did not feel like things were getting much better.? Increasing swelling increasing pain.? With no other significant change.? No drainage.? Difficulty having bowel movements.? Was seen in the emergency room 3 different times and today was not getting better.? Seem to have worsening symptoms and was having inability to control pain.? Patient with no other significant new changes or complaints.? Review of systems otherwise negative. From admitting H&P. Discharge Providers Provider Date of admission: 11/01/22 18:15 Discharge Date: 11/03/22 Primary care physician: Keri Rivera MD Consults: 11/02/22 08:29 Consult to General Surgery Routine Comment: Consulting Provider: Chana Ocampo Reason for consultation: perirectal abscess Has provider been notified: Yes Discharge provider: Rob Crane MD Summary Hospital Course Discharge Diagnosis: 1. Perirectal abscess, present on admission and improving. 2. Dehydration, present on admission and improved. Hospital Course: Patient was admitted with a abscess and started on antibiotics, IVF and pain control. He had spontaneous drainage of the collection (swab sent) and improved clinically. He was seen by surgery who recommended conservative treatment. He was stable fpr discharge on oral antibiotics. Status at Discharge Cognitive/behavioral status at discharge: at baseline, oriented Functional status at discharge: independent ambulation Overall status at discharge: patient is back to baseline Time Spent with Patient Time spent: Greater than 30 minutes Exam Vital Signs (past 8 hours): - 11/03/22 08:15 Temperature 98.1 F Pulse Rate 65 Respiratory Rate 16 Blood Pressure 143/75 H Pulse Oximetry 100 Oxygen Flow Rate 0 Oxygen Delivery Method Room Air Oxygen Flow Rate 0 Const General: cooperative, healthy appearing and comfortable Orientation: alert and oriented x3 HENMT Head: normal to inspection Face and sinus: normal facial exam Eyes Sclera: sclerae normal Neck Neck: normal visual inspection, trachea midline and No midline deformity Chest Chest: normal inspection of the chest Resp Effort & Inspection: normal respiratory effort GI Inspection: normal to inspection, no edema and non-distended Other: Velma rectal abscess with some induration and tenderness to palpation. External: scrotal swelling Back/Spine/Pelvis Sacrum: no ecchymosis Coccyx: no swelling Skin General: no rashes or lesions noted Neuro Cognition: normal cognition Speech: speech normal Motor: muscle tone normal throughout Extrem General: normal to inspection and no pedal edema Psych Appearance: grossly normal and well kempt Mental Status: mental status grossly normal Attitude: cooperative Objective Labs Result Diagrams: 11/03/22 04:02 11/03/22 04:02 Labs: Laboratory Results - last 24 hr 11/03/22 11/03/22 04:02 04:02 WBC 8.1 RBC 4.81 Hgb 14.1 Hct 39.9 L MCV 82.9 MCH 29.2 MCHC 35.3 RDW 12.3 Plt Count 195 Sodium 138 Potassium 3.7 Chloride 101 Carbon Dioxide 27 BUN 8 L Creatinine 0.69 Estimated GFR > 60 BUN/Creatinine Ratio 11.6 Glucose 90 Calcium 8.8 PFSH Medical History Healthy adult male Social History household members: spouse Smoking Status: Former smoker substance use type: marijuana Discharge Assessment & Plan Assessment and Plan Assessment: 1. Perirectal abscess.? Failing outpatient therapy.?Present on admission and improved. 2. Dehydration. ? Present on admission and improved. Plan of Treatment: PO antibiotics and close PCP follow up. Sitz baths BID. Discharge Plan Discharge Plan Patient Disposition: Home Provider Discharge Comment: Epson baths twice a day and follow up PCP early next week. Discharge orders & Medications Prescriptions: New ciprofloxacin HCl [Cipro] 500 mg tablet 500 mg PO BID Qty: 10 0RF metronidazole 500 mg tablet 500 mg PO TID Qty: 15 0RF Follow up/Referrals: Keri Rivera MD [Primary Care Provider] - 3-5 Days Discharge Health Status Health Concerns: Call doctor for increased pain, fevers. Continue Sitz baths twice a day. Diet/Activity/Treatments Diet: Regular Activity: as tolerated. Avoid sitting directly on sore area. Visit Report/Discharge Packet Stand Alone Forms: Patient Portal/API, Stroke Signs & Symptoms Discharge Data Primary Care Provider: Keri Rivera Attending Provider: Lenka Segundo VTE Deep Vein Thrombosis/Pulmonary Embolism Present on Admission: No
== END 2022-11-03 15:20 | disposition home or self-care (01) ==
LOC: ED 18:10 → AC 18:15 → ICU 11-02 09:12
PROVIDERS: Family Medicine; Internal Medicine; Admitting Provider Family Medicine; Emergency Provider Emergency Medicine; PCP Family Medicine; Referring Provider Emergency Medicine; Visit Provider Family Medicine
DX: K61.1 Rectal abscess (principal); E86.0 Dehydration
CPT/HCPCS: 36415; 74177; 80048; 81003; 85025; 85027; 87040; 87070; 87205; 87635; 87797; 96361; 96365; 96366; 96367; 96368; 96375; 96376; 99221; 99284; C9803; G0378; J0744; J1170; J1885; J1956; J2405

== ENCOUNTER → 2025-03-15 08:47 | Outpatient (CLI) | payer OTHER, SELFPAY ==
[2022-11-02 11:31] VITALS: BMI 30.2
--- NOTE | 2025-03-15 08:49 | DI.RAD.S_ITS ---
PROCEDURE: XR HIP W PEL IF DONE LT 2V INDICATIONS: Left hip pain TECHNIQUE: AP pelvis with lateral view(s) of the left hip(s). COMPARISON: None. FINDINGS: Bones: No fractures or dislocations. Mild bilateral hip joint osteoarthritic changes are seen with superior joint space narrowing and subchondral sclerosis. Prominence of superior anterior left femoral head neck junction is seen which can be seen associated with CAM type femoral acetabular impingement. No evidence of avascular necrosis of femoral head. Pelvic ring appears intact. No suspicious bony lesions. Soft tissues: The visualized bowel gas pattern is normal. No suspicious soft tissue calcifications. IMPRESSION: No acute pelvic or hip fracture. Mild bilateral hip joint osteoarthritis. No evidence of avascular necrosis. Prominence of superior anterior left femoral head neck junction which can be seen associated with CAM type femoral acetabular impingement. Dictated by: Stevo White M.D. on 03/15/2025 at 18:11 Approved by: Stevo White M.D. on 03/15/2025 at 18:12
== END ==
PROVIDERS: Referring Provider Nurse Practitioner Family; Visit Provider Nurse Practitioner Family
DX: M16.0 Bilateral primary osteoarthritis of hip (principal); M25.552 Pain in left hip
CPT/HCPCS: 73502